=== PATIENT | male | born 1965 | race Caucasian/White ===

== ENCOUNTER 2022-04-04 08:58 | Observation (INO) ==
--- NOTE | 2022-02-27 10:40 | Anesthesiology Consultation ---
Date of Service February 27, 2022 Assessment & Plan (1) Encounter for pre-operative examination: - pt reports upcoming PCP pre-op appt 03/23/22 KATTY Cooper. Outpatient joint assessment: Patient is currently scheduled for inpatient pathway. If re-evaluated pending system levels during current pandemic/surgeon requests outpatient pathway, patient is acceptable candidate for outpatient joint program from anesthesia standpoint pending surgeon's office assessment of pt motivation/support/completion of same day joint program preop requirements. Chart Review Chart Review: Pending: Refer to Additional Notes / Consult section and Patient seen in Pre Admission Testing Teaching & Discussion Pre-Anesthesia Teaching/Discussion Notes: Instructed NPO after midnight before surgery, except medications with 15 cc of water. Medication instructions provided according to the PAT guidelines. History Surgery Operation Date: 04/04/22 11:50 Proposed Procedures p Left Total Knee Arthroplasty - Alexys Colin MD Height/Weight Height: 5 ft 7 in Weight: 87.3 kg Allergies Allergy/AdvReac Type Severity Reaction Status Date / Time No Known Drug Allergies Allergy Verified 02/22/22 11:01 almond milk AdvReac Nausea Uncoded 02/22/22 11:01 Medications Home Medications Medication Instructions Recorded Confirmed Last Taken No Known Home Medications 02/22/22 02/22/22 Unknown Past Medical History Medical History (Updated 02/27/22 @ 10:39 by Mee Chapin PA-C) Degenerative joint disease lt knee Family history of colon cancer in father History of COVID-19 x3, most recent 07/2021, tested positive, not hosp; shortness of breath, loss of smell>resolved. Patient denies h/o stroke, seizures, heart attack, heart failure, DM, HTN, blood clots or blood transfusions. Exercise / Class Metabolic Activity II 4-5 Yardwork/Stairs/Walk up hill (denies CP or SOB with 1 FOS) Past Surgical History Surgical History (Updated 02/27/22 @ 11:10 by Mee Chapin PA-C) History of tonsillectomy and adenoidectomy Hx of colonoscopy Hx of knee surgery to remove meniscus lt. knee Hx of oral surgery jaw surgery-teeth extraction, implants, bone grafting Past Anesthesia History No Hx of Anesthesia Complications and No Family Hx of Anesthesia Complications History of PONV No Hx of PONV and No Hx of Motion Sickness Social History Smoking Status: Never smoker Do You Dip or Chew Tobacco: No (quit-4 years ago) Hx Alcohol Use: Yes Alcohol type: beer, wine and hard liquor alcohol intake frequency: a few times a week Hx Substance Use: No substance use type: does not use Review of Systems Patient denies chest pain, shortness of breath, dyspnea on exertion, snoring, witnessed apneas, reflux, fever, chills, cough, wheezing, or palpitations. Physical Exam Vital Signs Vitals BP 122/74 P 59 TEMP 97.6 SP02 99% on RA RESP 17 Physical Full cervical extension range of motion without pain TMD 3.5 finger breadths Mallampati Score 2 Dentition: intact, several posts, caps/crowns; denies chipped or loose teeth, or bridges Lungs: normal respiratory effort. Clear throughout to auscultation, no adventitious breath sounds Cardiac: regular rate and rhythm, no murmurs noted Carotid arteries: negative bruit bilat Lab Results Anesthesia Preop Results Results Anesthesia Widget: WBC 5.80 K/ul (4.8-10.8) 02/27/22 Hgb 15.0 g/dl (14.0-18.0) 02/27/22 Hct 43.8 % (40.1-51.0) 02/27/22 Plt 249 K/uL (130-400) 02/27/22 Na 139 mmol/L (136-145) 02/27/22 K 4.2 mmol/L (3.5-5.1) 02/27/22 Cl 107 mmol/L (98-107) 02/27/22 CO2 27 mmol/L (21-32) 02/27/22 BUN 18 mg/dl (6-23) 02/27/22 Creat 0.98 mg/dl (0.6-1.4) 02/27/22 Glucose Level 85 mg/dl (70-99(Fasting)) 02/27/22 PT 11.1 Seconds (9.0-12.0) 02/27/22 PTT 27.6 Seconds (21.0-31.0) 02/27/22 INR 1.0 (0.9-1.1) 02/27/22 HA1c 5.5 % (4.5-5.6) 02/27/22 Urine Color Yellow 02/27/22 Urine Appearance Clear (Clear) 02/27/22 Urine pH 5.5 (4.5-7.5) 02/27/22 Urine Specific [place] 1.012 (1.000-1.030) 02/27/22 Urine Protein Negative (Negative) 02/27/22 Urine Glucose (UA) Negative (Negative) 02/27/22 Urine Ketones Negative (Negative) 02/27/22 Urine Blood Negative (Negative) 02/27/22 Urine Nitrite Negative (Negative) 02/27/22 Urine Bilirubin Negative (Negative) 02/27/22 Urine Urobilinogen Negative (Negative) 02/27/22 Urine Leukocyte Esterase Negative (Negative) 02/27/22 Blood Type O Positive 02/27/22 Antibody Screen NEGATIVE 02/27/22 Testing Electrocardiogram Date: 02/27/22 Sinus bradycardia, rate 54 bpm Chest X-Ray Date: 02/27/22 No lines and tubes are seen. The cardiomediastinal silhouette is normal. The lungs are clear. No evidence of pleural effusion or pneumothorax. IMPRESSION: No acute chest disease. COVID-19 Risk Screen Screening Information COVID-19 Screen Date: 02/27/22 Exposure 21 Days Family/Household +COVID Last 21 Days: No Exposure 10 Days Any COVID Exposure Last 10 Days: No Symptoms Last 10 Days Experienced COVID Sx Last 10 Days: No + COVID 0-90 Days COVID + in Last 0-90 Days: No
--- NOTE | 2022-04-03 19:35 | History & Physical Report ---
Date of Service April 03, 2022 Assessment & Plan (1) Primary osteoarthritis of left knee: Plan: Treatment options discussed with the patient. He has failed conservative measures and would like proceed with surgical intervention. Risks, benefits and alternatives to surgery including but not limited to infection, DVT, pain, stiffness, need for revision surgery, damage to blood vessels, damage to nerves, PE, , were discussed with the patient and they wish to proceed. Plan for left total knee arthroplasty at [facility] on April [address] Colin. We will plan on outpatient physical therapy. We will plan on aspirin 81daily for 1 month postop for DVT prophylaxis. All questions answered. Patient will follow-up postop. History of Present Illness Chief Complaint: Left knee Primary Care Provider: NO PCP 56-year-old male with no significant past medical history who presents with o ngoing left knee pain. Pain is interfering with his daily activities. He has failed conservative measures and would like to proceed with surgical intervention. Patient denies headaches, sweats, fevers, chills, double vision, blurred vision, cough, sore throat, dysphagia, chest pain, sob, wheezing, n/v/d/c, numbness, tingling, fatigue, urinary symptoms, mood disorders. ROS positive for left knee pain and stiffness. Allergies Allergy/AdvReac Type Severity Reaction Status Date / Time No Known Drug Allergies Allergy Verified 02/22/22 11:01 almond milk AdvReac Nausea Uncoded 02/22/22 11:01 Home Medications Medication Instructions Recorded Confirmed Type No Known Home Medications 02/22/22 02/22/22 History Past Med/Surg History Medical History (Updated 04/03/22 @ 19:34 by Markus Pompa PA-C) Degenerative joint disease lt knee Family history of colon cancer in father History of COVID-19 x3, most recent 07/2021, tested positive, not hosp; shortness of breath, loss of smell>resolved. Surgical History (Updated 02/27/22 @ 11:10 by Mee Chapin PA-C) History of tonsillectomy and adenoidectomy Hx of colonoscopy Hx of knee surgery to remove meniscus lt. knee Hx of oral surgery jaw surgery-teeth extraction, implants, bone grafting Social History Smoking Status: Never smoker Second Hand Exposure: No; Hx Alcohol Use: Yes Alcohol type: beer, wine and hard liquor Hx Substance Use: No Preferred Language: Ivorian Communication Ability: Effective Signal Processing Engineer Required: No Beliefs That Will Affect Care: None Current Living Situation: Spouse and Family Feels Safe at Home: Yes Assistive Devices: None Review of Systems All systems reviewed & are unremarkable except as noted in HPI & below Physical Exam Constitutional: well developed and well nourished; no acute distress Eyes: PERRL, conjunctivae normal, anicteric sclerae ENMT: external ear and nose normal, oropharynx normal Neck: trachea midline, no thyromegaly Respiratory: normal respiratory effort, lungs clear to auscultation Cardiovascular: RRR, no murmur, no edema Musculoskeletal: Left knee: Varus alignment. Mild effusion with medial joint line tenderness. Medial arthrotomy scar. Positive Darcy's. Stable to valgus and varus stress test. Range of motion is 10 to 130 degrees. Skin: no rashes, warm and dry Neurologic: patellar DTR's 2+ bilat, sensation intact Psychiatric: A+Ox3, euthymic affect Results & Data ([facility]) Diagnostic Findings Left knee: End-stage osteoarthritis left knee, [id number] medial and lateral compartments. There is bone loss medial tibial plateau. He has particular osteophyte formation and subchondral sclerosis.
[~2022-04-04 08:58] MED LIST: ACETAMINOPHEN 500 MG TAB PO SCH; BUPIVACAINE 0.5 % 5 MG/1 ML PF 10ML VIAL ONE; CeleBREX 200 MG CAP PO SCH; FAMOTIDINE 20 MG TAB PO SCH; GABAPENTIN 600 MG DOSE PO SCH; LR 500ML BOLUS, THEN 15ML/HR IV SCH; METOCLOPRAMIDE HCL 10 MG TABLET PO SCH; MIDAZOLAM HCL 1 MG/ML 2ML VIAL ONE; PROPOFOL IV EMULSION 10 MG/ML 20 ML VIAL IV ONE; ROPIVACAINE 0.5% 5 MG/ML 30 ML VIAL ONE; ROPIVACAINE 0.5% HCL/PF 150 MG, BUPIVACAINE 0.75% MPF 20 ML, EPINEPHrine 30MG/30ML (OR ... INSTIL SCH; TRANEXAMIC ACID 1,000 MG **IV Intra-op IV SCH; TRANEXAMIC ACID 1,000 MG **IV Pre-op IV SCH; ceFAZolin 2000MG 2,000 MG/15 ML SYR IV SCH; dexAMETHasone 4 MG TAB PO SCH; fentaNYL citrate 100 MCG/2 ML VIAL ONE
--- NOTE | 2022-04-04 09:34 | History & Physical Bridge Note ---
Date of Service April 04, 2022 History & Physical Bridge Note I have examined the patient, reviewed the History & Physical and in the interval since the performance of the History & Physical I have noted the following changes of clinical significance: no changes noted
[2022-04-04] MEDS ORDERED: ORTHO JOINT ANESTHETIC ONE (10:03)
[2022-04-04] MEDS ORDERED: ePHEDrine sulfate 50 MG/ML AMP IV PRN (10:10)
[2022-04-04] MEDS ORDERED: fentaNYL citrate 100 MCG/2 ML VIAL IV PRN (10:10)
[2022-04-04] MEDS ORDERED: ATROPINE SULFATE 0.1 MG/ML 10ML SYR IV PRN (10:10)
[2022-04-04] MEDS ORDERED: ONDANSETRON INJ 2 MG/ML 2 ML VIAL IV PRN ×2 (10:10→14:32)
[2022-04-04] MEDS ORDERED: ePHEDrine sulfate 50 MG/ML AMP ONE (11:31)
[2022-04-04] MEDS ORDERED: PHENYLEPHRINE HCL 10 MG/ML VIAL ONE (11:31)
[2022-04-04] MEDS ORDERED: PROPOFOL IV EMULSION 10 MG/ML 20 ML VIAL IV ONE (12:52)
--- NOTE | 2022-04-04 13:15 | Operative Report ---
Post Operative Report Pre & Post Diagnosis Operation Date: 04/04/22 11:40 Pre-Op Diagnosis: Osteoarthritis Left knee, history open medial meniscectomy, loose bodies intra- articular and extra-articular Post-Op Diagnosis: Osteoarthritis Left knee, history of open medial meniscectomy, chronic ACL tear, loose bodies intra-articular and extra-articular I identified the patient and participated in the time-out.: Yes Procedure Operation Date: 04/04/22 11:40 Actual Procedures p Left Total Knee Arthroplasty(Left), stewart and Acticoat superficial wound VAC- Alexys Colin MD Surgeon Alexys Colin MD Braille Duplicating Machine Operator Ryan DASILVA Estimated Blood Loss 5 Findings Consistent with Post-Op Diagnosis Specimens Bone cuts Drains 2 Hemovac drain Anesthesia Type MAC Spinal Regional Complications none Disposition Disposition: Recovery Room Indications 56-year-old male with chronic left knee pain failed conservative management. History of open medial meniscectomy many years ago. Radiographs demonstrate severe tricompartmental osteoarthritis [id number] medial compartment bone loss multiple loose bodies including loose bodies and a popliteal cyst posteriorly that are extra-articular. Description of Procedure Patient was taken to the operating room placed supine on the operating table and anesthetized under spinal MAC regional block anesthesia. Exam under anesthesia demonstrated 15 through 135 degrees range of motion. A pneumatic tourniquet was placed about the thigh of the left lower extremity. The left lower extremity wa s prepped and draped in usual sterile fashion. The leg was elevated exsanguinated with an Esmarch bandage and the pneumatic tourniquet was raised to 300 mm mercury. An anterior incision was made across the left knee. The skin was incised longitudinally subcutaneous flaps were elevated and an incision was made through the medial retinaculum extending up into the mid third of the quadriceps tendon and extended down to the medial tibial tubercle. Intra- articular findings demonstrated severe tricompartmental osteoarthritis [id number] medial and lateral compartments status post medial meniscectomy. There was notch stenosis absent ACL with chronic ACL tear. 2 intra-articular loose bodies were identified the remainder extra-articular.. The knee was exposed by excising the infrapatellar fat pad, excising the meniscal remnants and loose bodies. Any inflamed synovial tissue was resected. The fat pad over the anterior femur was resected for placement of the component in that area. The lateral synovial bands were release. The femur was exposed. The custom femoral cutting block was pinned in position. The distal femoral cutting block was applied. The distal femoral cut was made with the oscillating saw. The size 10, 4-in-1 cutting block was placed. The anterior and posterior chamfer cuts were made. The knee was extended and a subperiosteal peel lateral release was performed around the patella. The patella width was measured and width was reproduced using freehand cut technique. The 35 millimeter symmetrical patella was used. 3 drill holes are made for the pegs. The tibia was exposed. A custom tibial cutting block was positioned and drill holes were made for the cutting guide. Cutting guide was placed and the proximal cut was made with the oscillating saw. All osteophytes were resected. The lamina mixing machine tender was used to assess ligamentous balance and the ligaments were balanced in extension and flexion. This required medial posterior medial and pie crusting MCL to get balanced flexion extension gaps. The tibia was reexposed and measured for a size G tibial component. This was externally rotated in line with the tibial tubercle and the fixation pins were drilled. The proximal tibia was fashioned with the drill and punch. The size 10 CR femoral trial was inserted. The trial MC inserts were used. The 12 mm insert gave balanced ligaments through full range of motion. The patella tracked centrally. the trials were removed. The orthomix anesthetic cocktail was injected per protocol. The knee was then copiously irrigated with pulsatile lavage saline solution. The final components were cemented with Refobacin bone cement. The final components were persona 10 CR left standard femur, left G tibia, left 12 mm MC polyethylene tibial compo nent, 35 symmetrical polyethylene patella. After the cement cured with the knee in full extension the Betadine soak was used per protocol. The knee joint was copiously irrigated with pulsatile lavage saline solution . 2 drains were brought out laterally and connected to a Hemovac. The quadriceps tendon and medial retinaculum were closed with interrupted [id number] #1 Vicryl sutures. The knee was taken through a full range of motion 0 through 135 degrees and repair was secure. The subcutaneous tissues were closed with 2-0 Vicryl sutures and skin was closed with silvio. Sterile dressings were applied and the patient tolerated the procedure well. Ryan DASILVA my physician imaging assistant participated as registered sales assistant and was integral participant in all aspects of the procedure. He assisted in soft tissue retraction, instrument management ,leg positioning, the closure, application of the superficial wound VAC and will participate in the postoperative care of the patient. I attest to the content of the Intraoperative Record and any orders documented therein. Any exceptions are noted below.
--- NOTE | 2022-04-04 13:48 | XRay Report ---
XR knee LT 1 or 2V routine CLINICAL HISTORY: Surgical Post Op TECHNIQUE: 2 views of the left knee were obtained. Comparison: Comparison is made to knee radiographs 02/10/2010 FINDINGS: Patient is status post total knee arthroplasty with expected postsurgical changes including soft tiss ue swelling and subcutaneous emphysema. No periarticular lucency or hardware fracture is seen. Chroni c calcific densities in the posterior joint space noted. IMPRESSION: Expected postoperative appearance status post placement of total knee arthroplasty. ACT 112: Negative or not required by law. Electronically signed by: Agustin Andrea M.D. 04/04/2022 1:47 PM
--- NOTE | 2022-04-04 14:10 | Anesthesiology Progress Note ---
Date of Service April 04, 2022 Anesthesia Post Procedure Vital Signs Vital Signs: Temp Pulse Pulse Resp BP Pulse Ox O2 Del Method 04/04/22 14:00 36.4 C L 78 15 114/65 93 Room Air 04/04/22 13:50 73 21 112/63 98 Room Air 04/04/22 13:40 75 19 114/57 L 100 Oxymask 04/04/22 13:31 36.1 C L 87 15 120/74 95 Oxymask 04/04/22 09:46 36.7 C 65 22 138/77 97 Room Air O2 Flow Rate 04/04/22 14:00 04/04/22 13:50 04/04/22 13:40 4 04/04/22 13:31 6 04/04/22 09:46 Transfer of Care Handoff Completed per policy Notes Mental Status: alert / awake / arousable and participated in evaluation Patient Amnestic to Procedure: Yes Nausea / Vomiting: adequately controlled Pain: adequately controlled Airway Patency, RR, SpO2: stable & adequate BP & HR: stable & adequate Hydration State: stable & adequate Anesthetic Complications: no major complications apparent and Pt Satisfied with anesthetic care
[2022-04-04] MEDS ORDERED: MAGNESIUM HYDROXIDE SUSP 30 ML UDC PO PRN (14:32)
[2022-04-04] MEDS ORDERED: bisacodyL 10 MG SUPP PR PRN (14:32)
[2022-04-04] MEDS ORDERED: HYDROmorphone INJ 0.5 MG/0.5 ML SYR IV PRN (14:32)
[2022-04-04] MEDS ORDERED: NALOXONE HCL 0.4 MG/1 ML VIAL/CARP IV PRN (14:32)
[2022-04-04] MEDS ORDERED: diphenhydrAMINE 50 MG/ML VIAL IV PRN (14:32)
[2022-04-04] MEDS: SODIUM CHLORIDE 0.9% 1000ML 1,000 ML IV SCH (15:26)
[2022-04-04] MEDS: ACETAMINOPHEN 500 MG TAB PO SCH ×2 (15:26→21:40)
[2022-04-04] MEDS: oxyCODONE HCL IR 5 MG TAB (IMMEDIATE RELEASE) PO PRN (20:24)
[2022-04-04] MEDS: ceFAZolin 2000MG 2,000 MG/15 ML SYR IV SCH (20:26)
[2022-04-04] MEDS: ASPIRIN 81 MG ECTAB PO SCH (20:26)
[2022-04-04] MEDS: DOCUSATE SODIUM 100 MG CAP PO SCH (20:27)
[2022-04-04] MEDS ORDERED: SENNA 8.6 MG TAB PO SCH (21:00)
[2022-04-05] MEDS: SODIUM CHLORIDE 0.9% 1000ML 1,000 ML IV SCH (01:24)
[2022-04-05] MEDS: ceFAZolin 2000MG 2,000 MG/15 ML SYR IV SCH (04:11)
[2022-04-05] MEDS: oxyCODONE HCL IR 5 MG TAB (IMMEDIATE RELEASE) PO PRN (04:18)
[2022-04-05] MEDS: ACETAMINOPHEN 500 MG TAB PO SCH (06:05)
[2022-04-05 06:26] LABS: Hematocrit (blood only) 37.5 % (40.1-51.0); Hemoglobin 13.2 g/dl (14.0-18.0); Mean Corpuscular Hemoglobin 29.7 pg (25.0-34.0); Mean Corpuscular Hgb Conc 35.2 g/dL (32.0-36.0); Mean Corpuscular Volume 84.5 fL (80.0-100.0); Mean Platelet Volume 9.4 fL (9.4-12.4); Platelet Count 228 K/uL (130-400); RDW Standard Deviation 36.7 fL (36.4-46.3); Red Blood Count 4.44 M/uL (4.63-6.08); White Blood Count 16.49 K/ul (4.8-10.8)
--- NOTE | 2022-04-05 08:00 | Orthopedic Progress Note ---
Date of Service April 05, 2022 Assessment & Plan (1) Primary osteoarthritis of left knee: Plan: Postop day 1 status post left total knee arthroplasty. PT/OT protocols. Weightbearing as tolerated. DVT prophylaxis-aspirin p.o. twice daily, SCDs, ALLAN sapp. Pain management as written. Labs pending. DC planning-patient is planning for outpatient PT upon discharge. Plan for discharge to home today Admission and Anticipated Discharge Date Admission Date: April 04, 2022 Subjective Postop day 1 Patient sitting up in bed awake and alert. No complaints this morning. Pain is controlled. Denies shortness of breath, chest pain, lightheadedness. Patient is hoping to go home today. Physical Exam Physical Exam: Dressings are clean, dry, and intact. Calves are soft and nontender. Neurovascular is intact. Toes are mobile. Patient has good dorsiflexion and plantarflexion of the left knee. Hemovac drainage was 130 mL from the previous shift Results & Data ([facility]) Vital Signs (Past 12 Hours) Vital Signs Temp Pulse Resp BP Pulse Ox O2 Del Method 04/05/22 07:35 36.6 C 57 L 18 114/68 98 Room Air 04/05/22 04:11 36.6 C 60 18 147/77 H 97 Room Air 04/04/22 23:43 36.6 C 65 18 106/65 94 Room Air
[2022-04-05] MEDS: ASPIRIN 81 MG ECTAB PO SCH (08:08)
[2022-04-05] MEDS: DOCUSATE SODIUM 100 MG CAP PO SCH (08:08)
[2022-04-05 08:37] LABS: BUN Creatinine Ratio 17.3 (10-20); Calcium 8.6 mg/dl (8.5-10.1); Creatinine Clr Calc Pharmacy 78.1 ml/min; Est GFR (African American) 85.9 ml/min; Est GFR (Non-African American) 74.1 ml/min; Potassium 4.2 mmol/L (3.5-5.1)
[2022-04-05] MEDS ORDERED: MULTIVITAMIN TAB PO SCH (09:00)
--- NOTE | 2022-04-05 09:17 | Discharge Summary ---
Date of Service April 05, 2022 Admission HPI Per Admitting Provider 56-year-old male with no significant past medical history who presents with ongoing left knee pain. Pain is interfering with his daily activities. He has failed conservative measures and would like to proceed with surgical intervention. Patient denies headaches, sweats, fevers, chills, double vision, blurred vision, cough, sore throat, dysphagia, chest pain, sob, wheezing, n/v/d/c, numbness, tingling, fatigue, urinary symptoms, mood disorders. ROS positive for left knee pain and stiffness. Admission Exam Per Admitting Provider Physical Exam Constitutional: well developed and well nourished; no acute distress Eyes: PERRL, conjunctivae normal, anicteric sclerae ENMT: external ear and nose normal, oropharynx normal Neck: trachea midline, no thyromegaly Respiratory: normal respiratory effort, lungs clear to auscultation Cardiovascular: RRR, no murmur, no edema Musculoskeletal: Left knee: Varus alignment. Mild effusion with medial joint line tenderness. Medial arthrotomy scar. Positive Darcy's. Stable to valgus and varus stress test. Range of motion is 10 to 130 degrees. Skin: no rashes, warm and dry Neurologic: patellar DTR's 2+ bilat, sensation intact Psychiatric: A+Ox3, euthymic affect Principal Diagnosis Left knee osteoarthritis Discharge Data Allergies Allergy/AdvReac Type Severity Reaction Status Date / Time No Known Drug Allergies Allergy Verified 04/04/22 09:36 almond milk AdvReac Difficulty Uncoded 04/04/22 09:36 Breathing Procedures Performed Operation Date: 04/04/22 11:40 Actual Procedures p Left Total Knee Arthroplasty(Left) - Alexys Colin MD Ordered Studies 04/04/22 05:00 US - OR guided needle placemen Routine Hospital Course (1) Primary osteoarthritis of left knee: [facility], [id number] Orthopedic Progress Note ISigned Patient:NIKKI MARIA Admit Date:04/04/22 MR#:[id number] Att Phy:Grzegorz Briones D.O. Acct ID:[id number] Mary Phy:PCP,NO Date:1965 Fam Phy: Age:56 Location:3E Sex:M Room/Bed:E306-1 cc: ~ *NOTICE TO RECEIVING REPUBLICAN/AGENCY This information is strictly Confidential and protected under [place] law. [place] law prohibits you from making any further disclosure of this information unless further disclosure is expressly permitted by the written consent of the person to whom it pertains or is authorized by law. A general authorization for the release of medical or other information is not sufficient for this purpose. Hospital accepts no responsibility if the information is made available to any other person, INCLUDING THE PATIENT. Date of Service April 05, 2022 Assessment & Plan (1) Primary osteoarthritis of left knee: Plan: Postop day 1 status post left total knee arthroplasty. PT/OT protocols. Weightbearing as tolerated. DVT prophylaxis-aspirin p.o. twice daily, SCDs, ALLAN sapp. Pain management as written. Labs pending. DC planning-patient is planning for outpatient PT upon discharge. Plan for discharge to home today Admission and Anticipated Discharge Date Admission Date: April 04, 2022 Subjective Postop day 1 Patient sitting up in bed awake and alert. No complaints this morning. Pain is controlled. Denies shortness of breath, chest pain, lightheadedness. Patient is hoping to go home today. Physical Exam Physical Exam: Dressings are clean, dry, and intact. Calves are soft and nontender. Neurovascular is intact. Toes are mobile. Patient has good dorsiflexion and plantarflexion of the left knee. Hemovac drainage was 130 mL from the previous shift Results & Data ([facility]) Vital Signs (Past 12 Hours) Vital Signs Temp Pulse Resp BP Pulse Ox O2 Del Method 04/05/22 07:35 36.6 C 57 L 18 114/68 98 Room Air 04/05/22 04:11 36.6 C 60 18 147/77 H 97 Room Air 04/04/22 23:43 36.6 C 65 18 106/65 94 Room Air H/H 13/37 WBC 16 - leukocytosis like due to preop steroids and or surgical stress. Pt currently asymptomatic. Total Time Total Time Spent Total Time Spent (In Minutes): 5 Discharge Plan Discharge Items Patient Disposition: Home - Self-Care Reason For Visit: LEFT TKA Discharge Diagnosis: Left knee osteoarthritis Activity: Per Instructions section Weightbearing: Left weightbearing Weightbearing Comment: As tolerated with walker Non-emergency contact: Surgeon Call non-emergency contact if: you have any medication questions, your pain is not controlled, your temperature is above 101.5, your wound has increased redness and your wound has increased drainage Follow-up/Referrals: Alexys Colin MD [Surgeon] - (Follow-up with Dr. Colin or his physician personal injury legal assistant in 2 weeks from the day of your surgery for your first postoperative visit.) PCP,NO [Primary Care Provider] - Diet: Regular Addtl Attending Provider Instructions: ACTIVITY RECOMMENDATIONS: SELF CARE INSTRUCTIONS AFTER TOTAL KNEE REPLACEMENT A. You may need to continue a physical therapy program after discharge from the hospital. There are several options available to you. Your doctor will assist you in selecting the best one for you. 1. An out-patient facility 2 to 3 times a week for therapy or home therapy. 2. Continue working on all exercises taught to you in the hospital. Your goals should be to increase bending of your knee to 90 degrees and beyond and to fully straighten your knee. B. You may progress at your own pace from walking with a walker or crutches to a cane; then to no assistive devices. C. Make walking a part of your daily routine. Be up as much as comfortable with rest periods throughout the day. Rest with leg elevation is very important. Use the ice wrap frequently for the first 3-4 weeks. D. There are no restrictions on activities. You may ride in a car, shop, participate in volunteer specialist and all social activities. E. Wear the long elastic stockings (ALLAN hose) 20 hours a day for 2 weeks after surgery. They can be removed several times a day for laundering and for a bath. F. You may shower, no tub baths until cleared by your doctor. SPECIAL CARE INSTRUCTIONS: VERY IMPORTANT TO READ AND REVIEW A. There are a few signs you need to watch for after you are home. Call [facility] if you notice any of the followin. Increased severe knee pain. Some pain is expected especially when you exercise. 2. Increased swelling in your leg or knee; pain or swelling of the calf muscle in either lower leg. 3. Any fluid drainage from the incision. 4. Shortness of breath or chest pain. B. Please call [facility] at if you have any concerns or questions about your operation or recovery. The doctor or his nurse will return your call promptly. C. You must take antibiotics before dental work, bladder, bowel or other surgery. Your doctor will provide you with a permanent care to carry describing this precaution. IMPORTANT: * REMEMBER TO TAKE ASPIRIN, 81 MG, TWICE DAILY FOR 4 WEEKS UNLESS OTHERWISE DIRECTED. THIS IS YOUR BLOOD THINNER. * HIGH RISK PATIENTS MAY BE PRESCRIBED A STRONGER BLOOD THINNER. THIS WILL BE PROVIDED AT DISCHARGE. * CALL IF INCREASED PAIN, REDNESS, DRAINAGE OR FEVER GREATER THAT 101. * WEAR ALLAN HOSE 20 HOURS PER DAY FOR 2 WEEKS. * PRIYANK dressing - This is a large suction dressing covering your incision. This will help pull any excess drainage from the wound and allow your incision to heal properly. You may shower with this if you can keep the unit outside of the shower. If any bleeding or leakage is noted please call your doctor's office. This will remain on your incision for 7 days and then should be removed. This can be done yourself or by the home nursing staff if applicable. The entire unit is disposable once removed. Once removed, keep incision clean and dry. If redness or drainage is noted, please call your surgeon. . FOLLOW UP VISIT: If appointment is not already scheduled: Please call [facility] to make a follow-up appointment for 2 weeks after your surgery at . Stand-Alone Forms: My [facility] [employer], Smoking Cessation Medications and DC Order Prescriptions: New acetaminophen [Tylenol Extra Strength] 500 mg Tablet 1,000 mg PO Q8 14 Days Qty: 84 0RF aspirin 81 mg Tablet,Delayed Release (Dr/Ec) 81 mg PO BID 30 Days Qty: 60 0RF polyethylene glycol 3350 [Miralax] 17 gram powder in packet 17 g PO DAILY PRN (Reason: constipation) Qty: 5 0RF oxycodone 5 mg tablet 5 mg PO Q4H MDD 6 tabs PRN (Reason: pain) Qty: 18 0RF Discharge Orders: Discharge Order (Routine); Ordered 04/05/22 Ordered By: Ryan Griffin Admission Data Admit Date/Time: 04/04/22 13:36 Attending Provider: Grzegorz Briones Admit Provider: Grzegorz Briones Primary Care Provider: PCP,KORINA
== END 2022-04-05 12:24 | disposition home or self-care (01) ==
LOC: ASU 08:58 → PACUINP 08:58 → 3E 14:55
DX: M17.12 Unilateral primary osteoarthritis, left knee